=== PATIENT | female | born 1930 ===

== ENCOUNTER 2016-12-22 15:01 | Inpatient (IN) | payer MEDICARE ==
[2016-12-22] MEDS ORDERED: Iohexol 240 (50 ml) PO STA (15:43)
--- NOTE | 2016-12-22 15:54 | ED PDOC ---
HPI: Abdomen Time Seen by Provider: 12/22/16 15:30 Chief Complaint (Nursing): GI Problem Chief Complaint (Provider): decreased appetite History Per: Patient, Family (86 y/o female h/o mild dementia h/o Diabetes , here with daughter by ambulance for evaluation of decreased appetite. Patient denies any chest pain/abdominal pain/fever/chills. Daughter notes patient has not taken her medications x 1 year (notes medication in cabinet). Notes patient has not been eating. Patient lives alone.) Past Medical History Reviewed: Historical Data, Nursing Documentation, Vital Signs Vital Signs: Last Vital Signs Temp 99.4 F 12/22/16 15:04 Pulse 88 12/22/16 15:04 Resp 18 12/22/16 15:04 BP 139/64 12/22/16 15:04 Pulse Ox 98 12/22/16 20:16 - Medical History PMH: HTN - Allergies Allergies/Adverse Reactions: Allergies Allergy/AdvReac Type Severity Reaction Status Date / Time No Known Allergies Allergy Verified 07/01/14 17:29 Review of Systems ROS Statement: Except As Marked, All Systems Reviewed And Found Negative Physical Exam - Reviewed Nursing Documentation Reviewed: Yes Vital Signs Reviewed: Yes - Physical Exam Appears: Positive for: Well, Non-toxic, No Acute Distress Head Exam: Positive for: ATRAUMATIC, NORMAL INSPECTION, NORMOCEPHALIC Skin: Positive for: Warm, Jaundice. Negative for: Normal Color Eye Exam: Positive for: Normal appearance, EOMI, PERRL, Scleral icterus ENT: Positive for: Normal ENT Inspection Neck: Positive for: Normal, Painless ROM Cardiovascular/Chest: Positive for: Regular Rate, Rhythm Respiratory: Positive for: CNT, Normal Breath Sounds Gastrointestinal/Abdominal: Positive for: Normal Exam, Bowel Sounds, Soft Back: Positive for: Normal Inspection Extremity: Positive for: Normal ROM Neurologic/Psych: Positive for: Alert (Patient alert and oriented to self/place/ event), Oriented - Laboratory Results Result Diagrams: 12/22/16 15:59 12/22/16 15:59 - ECG O2 Sat by Pulse Oximetry: 98 - Progress ED Course And Treament: d/w Dr Mcdonnell. Medical Decision Making Medical Decision Making: CT ABDOMEN AND PELVIS FINDINGS: LOWER THORAX: Unremarkable. LIVER: Profile bile duct dilatation. Intrahepatic bile ducts are dilated, the common duct is dilated in its entirety to a point where it abruptly tapers in the vicinity of the pancreatic head. Pancreatic head is enlarged and there is diffuse and infiltrative process affecting the pancreatic and. Portions of the body and tail are atrophic the pancreatic duct is dilated. All findings are presumptive evidence for primary neoplasm of the pancreas. The irregular an infiltrative process involving the pancreatic head measures approximately 3.4 x 3.5 cm. Differentiating the pancreatic mass from local infiltration and adenopathy is difficult because of the absence of intravenous contrast and paucity of fat. GALLBLADDER AND BILE DUCTS: Status post cholecystectomy. No abnormality is seen in the gallbladder fossa. PANCREAS: Intrahepatic bile duct and common bile duct dilatation appears to be related to a diffuse and infiltrative mass in the pancreatic head inseparable from adjacent retroperitoneal and right upper quadrant anatomic structures. SPLEEN: Unremarkable. ADRENALS: Unremarkable. No mass. KIDNEYS AND URETERS: Unremarkable. No hydronephrosis. No solid mass. VASCULATURE: Unremarkable. No aortic aneurysm. BOWEL: Unremarkable. No obstruction. NoThe stomach is decompressed and, incompletely distended accentuating thickness of gastric mucosa. A component of gastritis should be considered in the appropriate clinical setting. The gross mural thickening. Constipation without fecal impaction or obstruction. APPENDIX: Normal appendix. PERITONEUM: Trace pelvic ascites. LYMPH NODES: Lymphadenopathy is suspected in the peripancreatic, retroperitoneal region. As stated previously the absence of intravenous contrast and sufficient oral contrast precludes more optimal assessment BLADDER: Markedly distended urinary bladder without focal abnormality REPRODUCTIVE: Unremarkable. BONES: Sclerotic lesion affecting L3 vertebral body suspicious for metastatic disease. OTHER FINDINGS: None. IMPRESSION: Enlargement of pancreatic head, dilatation of distal pancreatic duct, marked dilatation of common and intrahepatic bile ducts. Findings in all likelihood represent primary neoplasm of the pancreas. Differentiating the primary neoplastic process from adjacent infiltration and lymphadenopathy is difficult due to absence of abdominal retroperitoneal fat, lack of intravenous contrast and suboptimal opacification of duodenum and proximal small bowel. Sclerotic lesion L3 vertebral body. Suspicious for metastatic disease. No additional suspicious findings visualized osseous structures. Disposition - Clinical Impression Clinical Impression: Pancreatic mass, Renal insufficiency - Patient ED Disposition Is Patient to be Admitted: Yes - Disposition Disposition Time: 19:59 Condition: FAIR - Pt Status Changed To: Hospital Disposition Of: Inpatient - Admit Certification Admit to Inpatient:: After my assessment, the patient will require hospitalization for at least two midnights. This is because of the severity of symptoms shown, intensity of services needed, and/or the medical risk in this patient being treated as an outpatient.
[2016-12-22] MEDS ORDERED: Sodium Chloride 0.9% 500 ML IV STA (15:55)
[2016-12-22] MEDS ORDERED: Iohexol 240 (50 ml) ONE (16:04)
[2016-12-22 16:09] LABS: BASO # 0.2 K/uL (0.0-0.2); BASO % 3.2 % (0.0-2.0); EOS % 0.4 % (0.0-4.0); LYMPH # 5.7 K/uL (1.0-4.3); LYMPH % 73.4 % (20.0-40.0); MEAN CELL VOLUME 86.1 fl (81.0-99.0); MEAN CORPUSCULAR HEMOGLOBIN 27.4 pg (27.0-31.0); MEAN CORPUSCULAR HGB CONC 31.8 g/dL (33.0-37.0); MEAN PLATELET VOLUME 10.9 fl (7.2-11.7); MONO # 0.3 K/uL (0.0-0.8); MONO % 3.4 % (0.0-10.0); NEUT # 1.5 K/uL (1.8-7.0); NEUT % 19.6 % (50.0-75.0); PLATELET COUNT 196 K/uL (130-400); RED CELL DISTRIBUTION WIDTH 17.6 % (11.5-14.5); WHITE BLOOD COUNT 7.8 K/uL (4.8-10.8)
[2016-12-22 16:22] LABS: ALB/GLOB RATIO 0.9 (1.0-2.1); ALBUMIN 3.8 g/dL (3.5-5.0); CALCIUM 10.1 mg/dL (8.4-10.2)
[2016-12-22 16:38] LABS: INR 1.3 (0.9-1.2); PARTIAL THROMBOPLASTIN TIME 31.9 Seconds (25.6-37.1); PROTHROMBIN TIME 14.4 Seconds (9.8-13.1)
[2016-12-22] MEDS ORDERED: Iohexol 240 (50 ml) PO ONE (17:14)
[2016-12-22 18:48] LABS: EOSINOPHIL 1 % (0-7); LYMPHOCYTE 31 % (20-50); MONOCYTE 5 % (0-10); NEUTROPHIL 61 % (42-75); PLATELET ESTIMATE NORMAL (NORMAL); REACTIVE LYMPHOCYTES 2 % (0-0); TOTAL CELLS COUNTED 100
[2016-12-22 18:49] LABS: ANISOCYTOSIS SLIGHT; HYPOCHROMIC SLIGHT; LARGE PLATELETS PRESENT; OVALOCYTES SLIGHT; TEARDROP CELLS SLIGHT
--- NOTE | 2016-12-22 19:00 | CT ---
PROCEDURE: CT Abdomen and Pelvis with contrast HISTORY: Painless jaundice, pancreatic cancer suspected COMPARISON: None. TECHNIQUE: Contrast dose: Oral contrast only. Radiation dose: Total exam DLP = 173.25 mGy-cm. This CT exam was performed using one or more of the following dose reduction techniques: Automated exposure control, adjustment of the mA and/or kV according to patient size, and/or use of iterative reconstruction technique. FINDINGS: LOWER THORAX: Unremarkable. LIVER: Profile bile duct dilatation. Intrahepatic bile ducts are dilated, the common duct is dilated in its entirety to a point where it abruptly tapers in the vicinity of the pancreatic head. Pancreatic head is enlarged and there is diffuse and infiltrative process affecting the pancreatic and. Portions of the body and tail are atrophic the pancreatic duct is dilated. All findings are presumptive evidence for primary neoplasm of the pancreas. The irregular an infiltrative process involving the pancreatic head measures approximately 3.4 x 3.5 cm. Differentiating the pancreatic mass from local infiltration and adenopathy is difficult because of the absence of intravenous contrast and paucity of fat. GALLBLADDER AND BILE DUCTS: Status post cholecystectomy. No abnormality is seen in the gallbladder fossa. PANCREAS: Intrahepatic bile duct and common bile duct dilatation appears to be related to a diffuse and infiltrative mass in the pancreatic head inseparable from adjacent retroperitoneal and right upper quadrant anatomic structures. SPLEEN: Unremarkable. ADRENALS: Unremarkable. No mass. KIDNEYS AND URETERS: Unremarkable. No hydronephrosis. No solid mass. VASCULATURE: Unremarkable. No aortic aneurysm. BOWEL: Unremarkable. No obstruction. NoThe stomach is decompressed and, incompletely distended accentuating thickness of gastric mucosa. A component of gastritis should be considered in the appropriate clinical setting. The gross mural thickening. Constipation without fecal impaction or obstruction. APPENDIX: Normal appendix. PERITONEUM: Trace pelvic ascites. LYMPH NODES: Lymphadenopathy is suspected in the peripancreatic, retroperitoneal region. As stated previously the absence of intravenous contrast and sufficient oral contrast precludes more optimal assessment BLADDER: Markedly distended urinary bladder without focal abnormality REPRODUCTIVE: Unremarkable. BONES: Sclerotic lesion affecting L3 vertebral body suspicious for metastatic disease. OTHER FINDINGS: None. IMPRESSION: Enlargement of pancreatic head, dilatation of distal pancreatic duct, marked dilatation of common and intrahepatic bile ducts. Findings in all likelihood represent primary neoplasm of the pancreas. Differentiating the primary neoplastic process from adjacent infiltration and lymphadenopathy is difficult due to absence of abdominal retroperitoneal fat, lack of intravenous contrast and suboptimal opacification of duodenum and proximal small bowel. Sclerotic lesion L3 vertebral body. Suspicious for metastatic disease. No additional suspicious findings visualized osseous structures.
[2016-12-22] MEDS: Dextrose 5%/0.45% NS 1,000 ML IV SCH (22:25)
[2016-12-23] MEDS ORDERED: Enoxaparin 30 mg Syringe SC SCH (09:00)
[2016-12-23] MEDS: Dextrose 5%/0.45% NS 1,000 ML IV SCH ×2 (09:09→17:43)
--- NOTE | 2016-12-23 09:09 | CP.PCM.PN ---
Subjective - Date & Time of Evaluation Date of Evaluation: 12/23/16 Time of Evaluation: 09:01 - Subjective Subjective: Virgil is a 86 yrs old femae who was broughtr to the Er with c/o lack of appetite and weight loss. She has a h/o diabetes mellitus, so to keep her sugar down she tries to eat as little as possible. No abdominal pain,, nausea, vomiting or diarrhea. . In the Er a ct scan of the abdomen showed a mass in the headof the pancreas with dilatation of the CBD and intrahepatic vessels. The radiological opinion is that this a pancreatic cancer Pt also has some lymphocytosis. She has no other complaints, She wants to go home because she does not like being in a hospital. A GI consult has been called for a EUS biopsy of the mass. Her bilirubin is 26 and LFT markedly elevated. Objective - Vital Signs/Intake and Output Vital Signs (last 24 hours): Temp Pulse Resp BP Pulse Ox 97.3 F L 57 L 18 157/77 H 99 12/23/16 07:26 12/23/16 07:26 12/23/16 07:26 12/23/16 07:26 12/23/16 07:26 - Medications Medications: Current Medications Bisoprolol Fumarate (Zebeta) 5 mg PO DAILY [facility] Last Admin: 12/23/16 03:28 Dose: 5 mg Enoxaparin Sodium (Lovenox) 30 mg SC DAILY [facility] PRN Reason: Protocol Dextrose/Sodium Chloride (Dextrose 5%/0.45% Ns 1000 Ml) 1,000 mls @ 100 mls/hr IV .Q10H [facility] Stop: 12/23/16 20:15 Last Admin: 12/22/16 22:25 Dose: 100 mls/hr - Labs Labs: PT 14.4 Seconds (9.8-13.1) H 12/22/16 15:59 INR 1.3 (0.9-1.2) H 12/22/16 15:59 APTT 31.9 Seconds (25.6-37.1) 12/22/16 15:59 - Additional Findings Additional findings: physical exam; Alert, well oriented, in no acute distress neck; Supple, adenopathy Chest; clear, no rales or rhonchi Heart; RSR, no murmur Abd; Soft, no mass, no h/s megaly Assessment and Plan - Assessment and Plan (Free Text) Assessment: Impression; Pancreatic mass, most probably malignant. Lymphocytosis. Plan: Plan; Pt needs a pancreatic biopsy. Will await the result.
--- NOTE | 2016-12-23 11:33 | US ---
HISTORY: evaluate for biliary obstruction COMPARISON: None. TECHNIQUE: Sonographic evaluation of the right upper quadrant of the abdomen. FINDINGS: LIVER: Measures 15.3 cm in length. Heterogeneously increased echogenicity of the liver parenchyma. No mass. Extensive intra and extrahepatic biliary dilatation. The proximal common bile duct measures up to 15 mm in diameter. GALLBLADDER: Status post cholecystectomy COMMON BILE DUCT: Measures 15 mm. No calculi within the biliary tree. There is probable sludge seen within the common bile duct. Cannot rule out neoplasm. Consider further evaluation with MRCP.. PANCREAS: Unremarkable as visualized. No mass. No ductal dilatation. RIGHT KIDNEY: Measures 9.4 cm in length. Normal echogenicity. No calculus, mass, or hydronephrosis. AORTA: No aneurysmal dilatation. IVC: Unremarkable. OTHER FINDINGS: None . IMPRESSION: Extensive intra and extrahepatic biliary ductal dilatation with probable sludge seen in common bile duct. Cannot rule out neoplasm. Consider evaluation with MRCP. Common bile duct measures up to 15 mm. Status post cholecystectomy. Probable fatty infiltration of the liver. Preliminary interpretation of this examination was reported by [facility] at 9:20 p.m. on 12/22/2016. There is concurrence of this report with the preliminary interpretation.
--- NOTE | 2016-12-23 13:09 | CP.PCM.CON ---
History of Present Illness - History of Present Illness History of Present Illness: GI consult requested by Dr Mcdonnell- This is a 86 yr old F with history of dementia / lives alone with her giorgio. She was brought to the ER by her daughter for loss of appetite and weight loss. In ER found to have hyperbilirubinemia and abnormal imaging for pancreatic head mass. Patient seen at bedside this am. Denies nausea, vomiting, constipation, diarrhea, rash. Denies smoking history Review of Systems - Review of Systems Review of Systems: 12 point ROS unremarkable except that documented in HPI Past Patient History - Past Medical History & Family History Past Medical History?: Yes - Past Social History Smoking Status: Never Smoked - CARDIAC Hx Cardiac Disorders: Yes Hx Hypertension: Yes - PULMONARY Hx Respiratory Disorders: No - NEUROLOGICAL Hx Neurological Disorder: Yes Hx Dementia: Yes (early? As per family) - HEENT Hx HEENT Problems: No - RENAL Hx Chronic Kidney Disease: No - ENDOCRINE/METABOLIC Hx Endocrine Disorders: No Hx Diabetes Mellitus Type 2: Yes - HEMATOLOGICAL/ONCOLOGICAL Hx AIDS: No Hx Human Immunodeficiency Virus (HIV): No - INTEGUMENTARY Hx Dermatological Problems: No - MUSCULOSKELETAL/RHEUMATOLOGICAL Hx Musculoskeletal Disorders: No Hx Falls: No - GASTROINTESTINAL Hx Gastrointestinal Disorders: No - GENITOURINARY/GYNECOLOGICAL Hx Genitourinary Disorders: No - PSYCHIATRIC Hx Psychophysiologic Disorder: No Hx Substance Use: No - SURGICAL HISTORY Hx Surgeries: No - ANESTHESIA Hx Anesthesia: Yes (Local) Hx Anesthesia Reactions: No Hx Malignant Hyperthermia: No Has any member of the family had a problem w/ anesthesia?: No Meds Allergies/Adverse Reactions: Allergies Allergy/AdvReac Type Severity Reaction Status Date / Time No Known Allergies Allergy Verified 07/01/14 17:29 - Medications Medications: Current Medications Amlodipine Besylate (Norvasc) 10 mg PO DAILY [facility] Last Admin: 12/23/16 12:51 Dose: 10 mg Bisoprolol Fumarate (Zebeta) 5 mg PO DAILY [facility] Last Admin: 12/23/16 03:28 Dose: 5 mg Enoxaparin Sodium (Lovenox) 30 mg SC DAILY [facility] PRN Reason: Protocol Last Admin: 12/23/16 09:10 Dose: 30 mg Hydrochlorothiazide (Microzide) 12.5 mg PO DAILY [facility] Dextrose/Sodium Chloride (Dextrose 5%/0.45% Ns 1000 Ml) 1,000 mls @ 100 mls/hr IV .Q10H [facility] Stop: 12/23/16 20:15 Last Admin: 12/23/16 09:09 Dose: 100 mls/hr Physical Exam - Constitutional Appears: Non-toxic, No Acute Distress, Cachectic - Head Exam Head Exam: ATRAUMATIC, NORMAL INSPECTION, NORMOCEPHALIC - Eye Exam Eye Exam: EOMI, Normal appearance, PERRL, Scleral icterus - ENT Exam ENT Exam: Mucous Membranes Moist, Normal Oropharynx - Respiratory Exam Respiratory Exam: Clear to Auscultation Bilateral, NORMAL BREATHING PATTERN - Cardiovascular Exam Cardiovascular Exam: REGULAR RHYTHM, RRR, +S1, +S2 - GI/Abdominal Exam GI & Abdominal Exam: Normal Bowel Sounds, Soft. absent: Tenderness Additional comments: No distension, guarding or rigidity - Extremities Exam Extremities exam: Positive for: full ROM, normal inspection - Neurological Exam Neurological exam: Alert - Psychiatric Exam Psychiatric exam: Normal Affect, Normal Mood - Skin Skin Exam: Dry, Intact Results - Vital Signs Recent Vital Signs: Last Vital Signs Temp 97.3 F L 12/23/16 07:26 Pulse 60 12/23/16 12:51 Resp 18 12/23/16 07:26 BP 157/77 H 12/23/16 12:51 Pulse Ox 99 12/23/16 07:26 - Labs Result Diagrams: 12/22/16 15:59 12/22/16 15:59 Labs: Laboratory Results - last 24 hr 12/23/16 10:53 POC Glucose (mg/dL) 187 H - Imaging and Cardiology CT scan - abdomen Status: Image reviewed by me Assessment & Plan - Assessment and Plan (Free Text) Assessment: 86 yr old F admitted with weight loss, new onset jaundice and abnormal imaging for pancreatic head mass. Scheduled for EUS with FNA, ERCP at [facility] tomorrow afternoon with GI plant quality manager Dr Fowler Plan: - Trend daily LFT and coag profile - IVF - NPO past midnight - Diet as tolerated - EUS/ ERCP at [facility] tomorrow afternoon for biopsy and possible stent - Likely metastatic lesion due to bony changes - Discussed with team and Dr Mcdonnell - GI/DVT prophylaxis
--- NOTE | 2016-12-23 13:58 | RAD ---
HISTORY: Admission COMPARISON: 07/01/2014 FINDINGS: LUNGS: No active pulmonary disease. PLEURA: No significant pleural effusion identified, no pneumothorax apparent. CARDIOVASCULAR: Normal. OSSEOUS STRUCTURES: No significant abnormalities. VISUALIZED UPPER ABDOMEN: Normal. OTHER FINDINGS: None. IMPRESSION: No active disease.
[2016-12-23 16:54] LABS: SQUAMOUS EPITHIAL < 1 /hpf (0-5); URINE BACTERIA OCC (<OCC); URINE BILIRUBIN MODERATE (NEGATIVE); URINE BLOOD NEGATIVE (NEGATIVE); URINE CLARITY SLIGHTY-CLOUDY (Clear); URINE COLOR AMBER (YELLOW); URINE GLUCOSE (UA) NEG (Normal); URINE LEUKOCYTE ESTERASE SMALL Leu/uL (Negative); URINE NITRATE NEGATIVE (NEGATIVE); URINE PROTEIN NEGATIVE (NEGATIVE)
--- NOTE | 2016-12-23 16:55 | CARD ---
APPROVED REPORT EXAM: Two-dimensional and M-mode echocardiogram with Doppler and color Doppler. Other Information Quality : [employer] : INDICATION Cardiac Disease: CAD 2D DIMENSIONS IVSd1.09 (0.7-1.1cm)LVDd4.66 (3.9-5.9cm) LVOT Diameter2.21 (1.8-2.4cm)PWd0.83 (0.7-1.1cm) IVSs1.02 (0.8-1.2cm)LVDs4.04 (2.5-4.0cm) FS (%) 13.3 %PWs0.82 (0.8-1.2cm) M-Mode DIMENSIONS IVSd0.62 (0.7-1.1cm)LVDd7.06 (4.0-5.6cm) PWd0.74 (0.7-1.1cm)IVSs1.03 cm FS (%) 19 %LVDs5.71 (2.0-3.8cm) PWs0.94 cm Mitral Valve MV E Zmeataqe60.2cm/sMV DECEL [id number] A Rhoshhtq277.1cm/s MV ZCA52bhC/A ratio0.5MVA (PHT)3.85cm2 TDI Lateral E' Peak V3.99cm/sMedial E' Peak V3.59cm/sE/Lateral E'14.1 E/Medial E'15.7 Tricuspid Valve TR Peak [id number]/sRAP [id number] Peak Gr.14mmHg [id number] LEFT VENTRICLE The left ventricle is normal size. There is normal left ventricular wall thickness. Left ventricle is severely impaired. The Ejection Fraction is 15-20%. Sever Septal and Apical hypokinesis Transmitral Doppler flow pattern is Grade I-abnormal relaxation pattern. Spontaneous contrast is noted in the LV and LA consistent with the low flow state. RIGHT VENTRICLE The right ventricle is normal size. There is normal right ventricular wall thickness. The right ventricular systolic function is normal. ATRIA The left atrium is borderline dilated. The right atrium size is normal. AORTIC VALVE The aortic valve is mildly thickened. No aortic regurgitation is present. There is no aortic valvular stenosis. MITRAL VALVE The mitral valve is mildly thickened. There is no mitral valve stenosis. Mitral regurgitation is moderate. TRICUSPID VALVE The tricuspid valve is normal in structure There is trace tricuspid regurgitation. PULMONIC VALVE The pulmonary valve is normal in structure and function. There is no pulmonic valvular regurgitation. GREAT VESSELS The aortic root is normal in size. The IVC is normal in size and collapses >50% with inspiration. PERICARDIAL EFFUSION The pericardium appears normal. <Conclusion> The left ventricle is normal size. There is normal left ventricular wall thickness. Left ventricle is severely impaired. The Ejection Fraction is 15-20%. Sever Septal and Apical hypokinesis Transmitral Doppler flow pattern is Grade I-abnormal relaxation pattern. Spontaneous contrast is noted in the LV and LA consistent with the low flow state. Mitral regurgitation is moderate.
--- NOTE | 2016-12-23 20:36 | CP.PCM.CON ---
History of Present Illness - History of Present Illness History of Present Illness: THE PATIENT IS AN 86 YEAR OLD FEMALE WHO WAS BROUGHT TO THE ER BY HER DAUGHTER FOR POOR APPETITE. SHE HAS LOST MUCH WEIGHT RECENTLY AND HAS BECOME JAUNDICED. A CT SCAN SHOWED AN PANCREATIC MASS. SHE IS SCHEDULED TO HAVE AN EUS/ERCP AND POSSIBLE STENT PLACEMENT AT [facility] AND I WAS ASKED TO SEE HER ON CARDIAC CLEARANCE. SHE ALSO HAS A HISTORY OF HYPERTENSION, CAD AND DEMENTIA. SHE DENIES ANY KNOWN CARDIAC DISEASE TO ME INCLUDING CHEST PAIN OR PRIOR MS. BUT, THE ATTENDING PHYSICIAN TOLD ME SHE HAS CAD. Past Patient History - Past Medical History & Family History Past Medical History?: Yes - Past Social History Smoking Status: Never Smoked - CARDIAC Hx Cardiac Disorders: Yes Hx Hypertension: Yes - PULMONARY Hx Respiratory Disorders: No - NEUROLOGICAL Hx Neurological Disorder: Yes Hx Dementia: Yes (early? As per family) - HEENT Hx HEENT Problems: No - RENAL Hx Chronic Kidney Disease: No - ENDOCRINE/METABOLIC Hx Endocrine Disorders: No Hx Diabetes Mellitus Type 2: Yes - HEMATOLOGICAL/ONCOLOGICAL Hx AIDS: No Hx Human Immunodeficiency Virus (HIV): No - INTEGUMENTARY Hx Dermatological Problems: No - MUSCULOSKELETAL/RHEUMATOLOGICAL Hx Musculoskeletal Disorders: No Hx Falls: No - GASTROINTESTINAL Hx Gastrointestinal Disorders: No - GENITOURINARY/GYNECOLOGICAL Hx Genitourinary Disorders: No - PSYCHIATRIC Hx Psychophysiologic Disorder: No Hx Substance Use: No - SURGICAL HISTORY Hx Surgeries: No - ANESTHESIA Hx Anesthesia: Yes (Local) Hx Anesthesia Reactions: No Hx Malignant Hyperthermia: No Has any member of the family had a problem w/ anesthesia?: No Meds Allergies/Adverse Reactions: Allergies Allergy/AdvReac Type Severity Reaction Status Date / Time No Known Allergies Allergy Verified 07/01/14 17:29 - Medications Medications: Current Medications Amlodipine Besylate (Norvasc) 10 mg PO DAILY [facility] Last Admin: 12/23/16 12:51 Dose: 10 mg Bisoprolol Fumarate (Zebeta) 5 mg PO DAILY [facility] Last Admin: 12/23/16 03:28 Dose: 5 mg Enoxaparin Sodium (Lovenox) 30 mg SC DAILY [facility] PRN Reason: Protocol Last Admin: 12/23/16 09:10 Dose: 30 mg Hydrochlorothiazide (Microzide) 12.5 mg PO DAILY [facility] Physical Exam - Respiratory Exam Respiratory Exam: Clear to Auscultation Bilateral - Cardiovascular Exam Cardiovascular Exam: REGULAR RHYTHM, +S1, +S2 - Extremities Exam Extremities exam: Positive for: normal inspection - Additional Findings Additional findings: EKG NSR ECHO WITH DECREASED LV SYSTOLIC FUNCTION LFT INCLUDING BILIRUBIN ARE VERY ELEVATED CT WITH PANCREATIC LESION, PANCREATIC DUCT AND BILIARY DUCTS AND L3 LESION Results - Vital Signs Recent Vital Signs: Last Vital Signs Temp 97.2 F L 12/23/16 16:00 Pulse 54 L 12/23/16 16:00 Resp 20 12/23/16 16:00 BP 133/71 12/23/16 16:00 Pulse Ox 99 12/23/16 16:00 - Labs Result Diagrams: 12/22/16 15:59 12/22/16 15:59 Labs: Laboratory Results - last 24 hr 12/23/16 12/23/16 12/23/16 10:53 11:08 15:55 POC Glucose (mg/dL) 187 H 197 H Hemoglobin A1c 5.5 Urine Color Urine Clarity Urine pH Ur Specific [place] Urine Protein Urine Glucose (UA) Urine Ketones Urine Blood Urine Nitrate Urine Bilirubin Urine Urobilinogen Ur Leukocyte Esterase Urine RBC (Auto) Urine Microscopic WBC Ur Squamous Epith Cells Urine Bacteria 12/23/16 16:30 POC Glucose (mg/dL) Hemoglobin A1c Urine Color [place] Urine Clarity Slighty-cloudy Urine pH 6.0 Ur Specific [place] 1.013 Urine Protein Negative Urine Glucose (UA) Neg Urine Ketones Negative Urine Blood Negative Urine Nitrate Negative Urine Bilirubin Moderate Urine Urobilinogen 2.0 H Ur Leukocyte Esterase Small Urine RBC (Auto) 6 H Urine Microscopic WBC 8 H Ur Squamous Epith Cells < 1 Urine Bacteria Occ H Assessment & Plan - Assessment and Plan (Free Text) Assessment: HYPERTENSION CAD BY HISTORY PANCREATIC LESION WITH POSSIBLE METASTASIS TO L3 Plan: THE PATIENT IS CLEARED FOR THE EUS/ERCP AND POSSIBLE BX AND STENT INSERTION THE FAMILY WAS SPOKEN TO AND THEY AGREE THAT THE PATIENT MUST PROCEED WITH THIS PROCEDURE CATHLEEN
--- NOTE | 2016-12-24 00:04 | CARD ---
APPROVED REPORT EKG Measurement Heart [id number] <Conclusion> Sinus bradycardia Septal infarct, age undetermined T wave abnormality, consider lateral ischemia Abnormal ECG
--- NOTE | 2016-12-24 06:41 | HP ---
HISTORY OF PRESENT ILLNESS: This is an 86-year-old female with history of multiple medical problems, not compliant to her medical followup or medications. The patient was not seen in my office for long period. The patient was brought to emergency room by her daughter because of stopping eating and remarkable loss of weight and generalized weakness. The patient was evaluated in emergency room where few are found to have deep jaundice as well as CAT scan findings of pancreatic mass. The patient was admitted for further management after starting IV fluid and GI consultation was called. The patient is developing dementia. PAST MEDICAL HISTORY: Coronary artery disease, hypertension, type II diabetes mellitus. FAMILY HISTORY: Noncontributory. SOCIAL HISTORY: Ex-smoker, no ETOH or substance abuse. HOME MEDICATIONS: The patient is on amlodipine and hydrochlorothiazide to which the patient is not compliant. REVIEW OF SYSTEMS: Not reliable. PHYSICAL EXAMINATION GENERAL: The patient is deeply jaundiced, but she is not on any cardiopulmonary distress. VITAL SIGNS: Blood pressure 157/77, temperature 97.3, respiratory rate 18 and pulse 57. HEENT: Pupils are equal and reactive to light. Normal-appearing mucosa of the conjunctiva. Sclerae clear. NECK: Supple. No JVD. No carotid bruit. No lymph node. No thyromegaly. CHEST AND LUNGS: Bilateral with symmetrical expansion. Good air exchange. No rales. No rhonchi. CARDIORESPIRATORY: PMI not localized. S1 and S2. No additional sounds. ABDOMEN: Normoactive bowel sounds. No tenderness. No organomegaly. No masses. EXTREMITIES: No cyanosis or clubbing. No edema. CENTRAL NERVOUS SYSTEM: The patient is alert, awake and oriented x1. The patient moves all extremities equally. LABORATORY DATA: Blood work done in emergency room showed the patient has elevated liver enzymes, AST is 275, ALT is 285. Alkaline phosphatase 1105 and total bilirubin of 26.5, BUN 66 and creatinine 1.6. ASSESSMENT: Obstructive jaundice, pancreatic mass, acute kidney injury with BUN 66 and creatinine 1.6. History of hypertension, history of type 2 diabetes mellitus. PLAN: We will continue IV fluids that was started in the emergency room and we will give the patient DVT prophylaxis, Lovenox 30 mg daily and continue Norvasc and Zebeta for hypertension and follow GI recommendations. Sameh MD Sathya [facility] # [id number]
[2016-12-24 07:35] LABS: EOS # 0.1 K/uL (0.0-0.7); EOS % 1.2 % (0.0-4.0); HEMOGLOBIN 13.5 g/dL (12.0-16.0); LYMPH # 1.4 K/uL (1.0-4.3); LYMPH % 24.7 % (20.0-40.0); MEAN CELL VOLUME 85.4 fl (81.0-99.0); MEAN CORPUSCULAR HEMOGLOBIN 27.3 pg (27.0-31.0); MEAN CORPUSCULAR HGB CONC 31.9 g/dL (33.0-37.0); MEAN PLATELET VOLUME 11.1 fl (7.2-11.7); MONO # 0.4 K/uL (0.0-0.8); MONO % 7.3 % (0.0-10.0); NEUT # 3.7 K/uL (1.8-7.0); NEUT % 66.8 % (50.0-75.0); NRBC % 0.1 % (0.0-0.0); RBC 4.96 Mil/uL (3.80-5.20); RED CELL DISTRIBUTION WIDTH 17.7 % (11.5-14.5); WHITE BLOOD COUNT 5.6 K/uL (4.8-10.8)
[2016-12-24 08:01] LABS: ALBUMIN 2.9 g/dL (3.5-5.0); ALT/SGPT 240 U/L (9-52); AST/SGOT 193 U/L (14-36); BLOOD UREA NITROGEN 35 mg/dl (7-17); CALCIUM 8.8 mg/dL (8.4-10.2); GFR AFRICAN-AMERICAN > 60; GFR NON-AFRICAN AMERICAN 53
[2016-12-24 08:02] LABS: ALB/GLOB RATIO 0.9 (1.0-2.1)
[2016-12-24 08:35] LABS: INR 1.5 (0.9-1.2); PARTIAL THROMBOPLASTIN TIME 36.1 Seconds (25.6-37.1); PROTHROMBIN TIME 16.5 Seconds (9.8-13.1)
--- NOTE | 2016-12-24 09:16 | CP.PCM.PN ---
Subjective - Date & Time of Evaluation Date of Evaluation: 12/24/16 Time of Evaluation: 09:08 - Subjective Subjective: Pt has no complaints today. She is to go to [facility] for EUS biopsy of the pancreas. Further decision depends on the result of the biopsy. Objective - Vital Signs/Intake and Output Vital Signs (last 24 hours): Temp Pulse Resp BP Pulse Ox 97.6 F 60 20 135/67 99 12/24/16 08:11 12/24/16 08:11 12/24/16 08:11 12/24/16 08:11 12/24/16 08:11 - Medications Medications: Current Medications Amlodipine Besylate (Norvasc) 10 mg PO DAILY [facility] Last Admin: 12/24/16 08:50 Dose: Not Given Bisoprolol Fumarate (Zebeta) 5 mg PO DAILY [facility] Last Admin: 12/24/16 08:50 Dose: 5 mg Enoxaparin Sodium (Lovenox) 30 mg SC DAILY [facility] PRN Reason: Protocol Last Admin: 12/23/16 09:10 Dose: 30 mg Hydrochlorothiazide (Microzide) 12.5 mg PO DAILY [facility] Last Admin: 12/24/16 08:50 Dose: Not Given Dextrose/Sodium Chloride (Dextrose 5%-0.45% Ns 500 Ml) 1,000 mls @ 100 mls/hr IV .Q10H [facility] Stop: 12/24/16 21:02 Last Admin: 12/24/16 06:40 Dose: 100 mls/hr - Labs Labs: 12/24/16 05:50 12/24/16 05:50 PT 16.5 Seconds (9.8-13.1) H 12/24/16 05:50 INR 1.5 (0.9-1.2) H 12/24/16 05:50 APTT 36.1 Seconds (25.6-37.1) 12/24/16 05:50
--- NOTE | 2016-12-24 10:12 | CP.PCM.PN ---
Subjective - Date & Time of Evaluation Date of Evaluation: 12/24/16 Time of Evaluation: 09:00 - Subjective Subjective: NO COMPLAINTS Objective - Vital Signs/Intake and Output Vital Signs (last 24 hours): Temp Pulse Resp BP Pulse Ox 97.6 F 60 20 135/67 99 12/24/16 08:11 12/24/16 08:11 12/24/16 08:11 12/24/16 08:11 12/24/16 08:11 - Medications Medications: Current Medications Amlodipine Besylate (Norvasc) 10 mg PO DAILY [facility] Last Admin: 12/24/16 08:50 Dose: Not Given Bisoprolol Fumarate (Zebeta) 5 mg PO DAILY [facility] Last Admin: 12/24/16 08:50 Dose: 5 mg Enoxaparin Sodium (Lovenox) 30 mg SC DAILY [facility] PRN Reason: Protocol Last Admin: 12/23/16 09:10 Dose: 30 mg Hydrochlorothiazide (Microzide) 12.5 mg PO DAILY [facility] Last Admin: 12/24/16 08:50 Dose: Not Given Dextrose/Sodium Chloride (Dextrose 5%-0.45% Ns 500 Ml) 1,000 mls @ 100 mls/hr IV .Q10H [facility] Stop: 12/24/16 21:02 Last Admin: 12/24/16 06:40 Dose: 100 mls/hr - Labs Labs: 12/24/16 05:50 12/24/16 05:50 PT 16.5 Seconds (9.8-13.1) H 12/24/16 05:50 INR 1.5 (0.9-1.2) H 12/24/16 05:50 APTT 36.1 Seconds (25.6-37.1) 12/24/16 05:50 - Cardiovascular Exam Cardiovascular Exam: REGULAR RHYTHM, +S1 - Extremities Exam Extremities Exam: Normal Inspection Assessment and Plan - Assessment and Plan (Free Text) Assessment: PANCREATIC MASS HYPERTENSION CAD HISTORY Plan: FOR EUS/ERCP TODAY AT [facility]
[2016-12-25 07:34] LABS: HEMOGLOBIN 12.3 g/dL (12.0-16.0); MEAN CORPUSCULAR HEMOGLOBIN 27.4 pg (27.0-31.0); MEAN CORPUSCULAR HGB CONC 31.5 g/dL (33.0-37.0); RBC 4.48 Mil/uL (3.80-5.20); RED CELL DISTRIBUTION WIDTH 17.7 % (11.5-14.5); WHITE BLOOD COUNT 9.6 K/uL (4.8-10.8)
[2016-12-25 07:41] LABS: ALB/GLOB RATIO 0.8 (1.0-2.1); ALBUMIN 2.6 g/dL (3.5-5.0); CALCIUM 8.5 mg/dL (8.4-10.2)
--- NOTE | 2016-12-25 08:42 | CP.PCM.PN ---
Subjective - Date & Time of Evaluation Date of Evaluation: 12/25/16 Time of Evaluation: 08:42 - Subjective Subjective: Pt was transported to [facility] where she underwent a EUS, had a stent placed in the CBD and a biopsy of the pancreas was also done. Awaiting the result of the biopsy. Objective - Vital Signs/Intake and Output Vital Signs (last 24 hours): Temp Pulse Resp BP Pulse Ox 97.6 F 59 L 20 116/60 100 12/25/16 08:14 12/25/16 08:14 12/25/16 08:14 12/25/16 08:14 12/25/16 08:14 - Medications Medications: Current Medications Amlodipine Besylate (Norvasc) 10 mg PO DAILY [facility] Last Admin: 12/24/16 08:50 Dose: Not Given Bisoprolol Fumarate (Zebeta) 5 mg PO DAILY [facility] Last Admin: 12/24/16 08:50 Dose: 5 mg Enoxaparin Sodium (Lovenox) 30 mg SC DAILY [facility] PRN Reason: Protocol Last Admin: 12/23/16 09:10 Dose: 30 mg Hydrochlorothiazide (Microzide) 12.5 mg PO DAILY [facility] Last Admin: 12/24/16 08:50 Dose: Not Given - Labs Labs: 12/25/16 05:50 12/25/16 05:50 PT 16.5 Seconds (9.8-13.1) H 12/24/16 05:50 INR 1.5 (0.9-1.2) H 12/24/16 05:50 APTT 36.1 Seconds (25.6-37.1) 12/24/16 05:50
--- NOTE | 2016-12-25 08:56 | CP.PCM.PN ---
Subjective - Date & Time of Evaluation Date of Evaluation: 12/25/16 Time of Evaluation: 08:15 - Subjective Subjective: NO NEW COMPLAINTS Objective - Vital Signs/Intake and Output Vital Signs (last 24 hours): Temp Pulse Resp BP Pulse Ox 97.6 F 59 L 20 116/60 100 12/25/16 08:14 12/25/16 08:14 12/25/16 08:14 12/25/16 08:14 12/25/16 08:14 - Medications Medications: Current Medications Amlodipine Besylate (Norvasc) 10 mg PO DAILY [facility] Last Admin: 12/24/16 08:50 Dose: Not Given Bisoprolol Fumarate (Zebeta) 5 mg PO DAILY [facility] Last Admin: 12/24/16 08:50 Dose: 5 mg Enoxaparin Sodium (Lovenox) 30 mg SC DAILY [facility] PRN Reason: Protocol Last Admin: 12/23/16 09:10 Dose: 30 mg Hydrochlorothiazide (Microzide) 12.5 mg PO DAILY [facility] Last Admin: 12/24/16 08:50 Dose: Not Given - Labs Labs: 12/25/16 05:50 12/25/16 05:50 PT 16.5 Seconds (9.8-13.1) H 12/24/16 05:50 INR 1.5 (0.9-1.2) H 12/24/16 05:50 APTT 36.1 Seconds (25.6-37.1) 12/24/16 05:50 - Respiratory Exam Respiratory Exam: Clear to Ausculation Bilateral - Cardiovascular Exam Cardiovascular Exam: REGULAR RHYTHM, +S1, +S2 - Extremities Exam Extremities Exam: Normal Inspection - Additional Findings Additional findings: PT HAD EUS/ERCP YESTERDAY AT [facility] WITH PANCREATIC BIOPSY AND STENT INSERTION MOST BP READINGS ARE LOW TO LOW NORMAL Assessment and Plan - Assessment and Plan (Free Text) Assessment: PROBABLE PANCREATIC CA HYPERTENSION CAD Plan: AMLODIPINE AND HCTZ STOPPED DUE TO LOW BP AND RECENT WEIGHT LOSS CONTINUE BETA RHIANNON IN LIGHT OF CAD PATIENT ON LIQUID DIET AWAITING BIOPSY RESULTS
--- NOTE | 2016-12-25 10:07 | PN ---
DATE: 12/24/2016 SUBJECTIVE: She has been n.p.o. for endoscopic ultrasound today at [facility]. PHYSICAL EXAMINATION: VITAL SIGNS: Blood pressure 135/67, temperature 97.6, respiratory rate 20, and pulse 60. HEENT: Icteric sclerae. NECK: Supple. NO JVD. No carotid bruits. No lymph node. No thyromegaly. LUNGS: Bilateral symmetrical expansion. Good air exchange. No rhonchi. CARDIOVASCULAR SYSTEM: PMI not localized. S1 and S2. No additional sounds. ABDOMEN: Normoactive bowel sounds. No tenderness. No organomegaly. No masses. EXTREMITIES: No cyanosis. No clubbing. No edema. FIRESETTER: Alert, awake, and oriented x1 and disoriented to time and to place. ASSESSMENT: 1. Obstructive jaundice , pancreatic head mass. 2. Hypertension. PLAN: The patient is for endoscopic ultrasound and possible biopsy and stent placement. I discussed the patient's condition with her daughter at the bedside. Guarded prognosis. Continue IV fluids, treating acute kidney injury and dehydration. Milan Mcdonnell MD [facility]
[2016-12-25] MEDS ORDERED: Potassium Chloride 20 mEq ER Tab PO ONE (10:38)
[2016-12-25] MEDS ORDERED: Dextrose 5%/0.45% NS 1,000 ML IV SCH (10:45)
--- NOTE | 2016-12-25 13:35 | CP.PCM.PN ---
Subjective - Date & Time of Evaluation Date of Evaluation: 12/25/16 Time of Evaluation: 08:00 - Subjective Subjective: Patient seen at bedside. Denies nausea, vomiting, abdominal pain. s/p ERCP with metal stent placement and EUS pancreatic head biopsy Objective - Vital Signs/Intake and Output Vital Signs (last 24 hours): Temp Pulse Resp BP Pulse Ox 97.6 F 66 20 102/62 99 12/25/16 08:14 12/25/16 08:58 12/25/16 08:14 12/25/16 08:58 12/25/16 08:58 - Medications Medications: Current Medications Bisoprolol Fumarate (Zebeta) 5 mg PO DAILY [facility] Last Admin: 12/25/16 10:04 Dose: 5 mg Enoxaparin Sodium (Lovenox) 30 mg SC DAILY [facility] PRN Reason: Protocol Last Admin: 12/23/16 09:10 Dose: 30 mg Dextrose/Sodium Chloride (Dextrose 5%/0.45% Ns 1000 Ml) 1,000 mls @ 50 mls/hr IV .Q20H [facility] Stop: 12/26/16 10:44 Piperacillin Sod/Tazobactam (Sod 2.25 gm/ Sodium Chloride) 100 mls @ 100 mls/ hr IVPB Q12 [facility] - Labs Labs: 12/25/16 05:50 12/25/16 05:50 PT 16.5 Seconds (9.8-13.1) H 12/24/16 05:50 INR 1.5 (0.9-1.2) H 12/24/16 05:50 APTT 36.1 Seconds (25.6-37.1) 12/24/16 05:50 - Constitutional Appears: Well, Non-toxic, No Acute Distress, Cachectic - Head Exam Head Exam: ATRAUMATIC, NORMAL INSPECTION, NORMOCEPHALIC - Eye Exam Eye Exam: Scleral icterus - Respiratory Exam Respiratory Exam: Clear to Ausculation Bilateral, NORMAL BREATHING PATTERN - Cardiovascular Exam Cardiovascular Exam: REGULAR RHYTHM, RRR, +S1, +S2 - GI/Abdominal Exam GI & Abdominal Exam: Soft, Normal Bowel Sounds - Neurological Exam Neurological Exam: Alert, Awake - Psychiatric Exam Psychiatric exam: Normal Affect, Normal Mood - Skin Skin Exam: Dry, Intact Assessment and Plan - Assessment and Plan (Free Text) Assessment: 86 yr old F admitted with weight loss, new onset jaundice and abnormal imaging for pancreatic head mass s/p EUS [facility] with ERCP sphincterotomy and 10 x 6 cm fully covered metal stent placement. Patient has bony mets on imaging and poor cardiac function. awaiting pathology. Rest of plan as per oncology. Tolerating regular diet Plan: - Total bilirubin down trending - No pain or s/s of pancreatitis - Pathology f/u and plan as per oncologist - Does not need anymore GI procedures - Regular diet - Thank you for letting us participate in the care of your patient
[2016-12-25 16:27] VITALS: TEMP 97.5
[2016-12-25 16:31] VITALS: BP 106/58; PULSE 60; RESP 20; O2SAT 99
--- NOTE | 2016-12-26 12:37 | DS ---
REASON FOR ADMISSION: This is an 86-year-old female with history of multiple medical problems who was admitted for severe obstructive jaundice. COURSE OF HOSPITALIZATION: Initially, the patient had a CAT scan of the abdomen that showed pancreatic head mass. The patient had a GI consultation done by Dr. Michael stewart and the patient was transferred to [facility] for endoscopic ultrasound, biopsy and stent placement. The patient was transferred back from [facility] to [facility] and she did not have any further symptoms. The patient was started on physical therapy and discharged to transitional care unit in a stable condition. FINAL DIAGNOSES: Obstructive jaundice, pancreatic head mass, history of hypertension. Please verify the demographics. [facility] MD Sathya cc:
== END 2016-12-25 17:58 | DRG 435 ==
LOC: H.ER 15:01 → H.ERHOLD 19:57 → H.MEDSURG1 21:27
PROVIDERS: ADMIT Internal Medicine; ATTEND Internal Medicine
DX: C25.0 Malignant neoplasm of head of pancreas (principal); K83.1 Obstruction of bile duct; N17.9 Acute kidney failure, unspecified; E11.9 Type 2 diabetes mellitus without complications; F03.90 Unspecified dementia, unspecified severity, without behavioral disturbance, psychotic disturbance, mood disturbance, and anxiety; I10 Essential (primary) hypertension; D72.820 Lymphocytosis (symptomatic); I25.10 Atherosclerotic heart disease of native coronary artery without angina pectoris; Z87.891 Personal history of nicotine dependence; Z91.19 Patient's noncompliance with other medical treatment and regimen

== ENCOUNTER 2016-12-25 13:07 | Inpatient (IN) | payer OTHER ==
[2016-12-25 18:05] VITALS: BMI 15.6
[2016-12-25 19:18] VITALS: RESP 20
[2016-12-25] MEDS: Dextrose 5%/0.45% NS 1,000 ML IV SCH (19:35)
[2016-12-25] MEDS ORDERED: Piperacillin/Tazobact 2.25 gm Inj IVPB SCH (21:00)
[2016-12-26] MEDS: Enoxaparin 30 mg Syringe SC SCH (09:02)
--- NOTE | 2016-12-26 11:18 | CP.PCM.CON ---
History of Present Illness - History of Present Illness History of Present Illness: THE PATIENT IS AN 86 YEAR OLD FEMALE WHO HAS A HISTORY OF CAD AND HYPERTENSION. SHE WAS RECENTLY ADMITTED TO [facility] AFTER THE DAUGHTER BROUGHT HER TO THE ER FOR LACK OF APPETITE AND WEIGHT LOSS. SHE WAS FOUND TO HAVE A PANCREATIC MASS AND DILATED BILIARY AND HEPATIC DUCTS ON CT SCAN AND SHE ALSO HAD VERY ELEVATED LFT. SHE UNDERWENT AN EUS/ERCP WITH STENT INSERTION AND PANCREATIC BX ON . SHE WAS DISCHARGED TO TCU FOR SUBACUTE CARE. CARDIOLOGY WAS NOW CALLED TO FOLLOW HER. SHE DENIES CHEST PAIN, ABDOMINAL PAIN OR SOB. Past Patient History - Past Medical History & Family History Past Medical History?: Yes - Past Social History Smoking Status: Never Smoked - CARDIAC Hx Cardiac Disorders: Yes Hx Cardia Arrhythmia: Yes (SB) Hx Circulatory Problems: Yes Hx Hypertension: Yes - PULMONARY Hx Respiratory Disorders: No - NEUROLOGICAL Hx Neurological Disorder: Yes Hx Dementia: Yes - HEENT Hx HEENT Problems: No - RENAL Hx Chronic Kidney Disease: Yes Other/Comment: acute kidney disease - ENDOCRINE/METABOLIC Hx Endocrine Disorders: Yes Hx Diabetes Mellitus Type 2: Yes - HEMATOLOGICAL/ONCOLOGICAL Hx Blood Disorders: No Hx AIDS: No Hx Human Immunodeficiency Virus (HIV): No - INTEGUMENTARY Hx Dermatological Problems: No - MUSCULOSKELETAL/RHEUMATOLOGICAL Hx Musculoskeletal Disorders: No Hx Falls: No - GASTROINTESTINAL Hx Gastrointestinal Disorders: Yes Hx Pancreatitis: (ENLARGED PANCREATIC HEAD) Other/Comment: HYPERBILIRUBINEMIA - GENITOURINARY/GYNECOLOGICAL Hx Genitourinary Disorders: No - PSYCHIATRIC Hx Psychophysiologic Disorder: No Hx Substance Use: No - SURGICAL HISTORY Hx Surgeries: No - ANESTHESIA Hx Anesthesia: Yes (LOCAL) Hx Anesthesia Reactions: No Hx Malignant Hyperthermia: No Meds Allergies/Adverse Reactions: Allergies Allergy/AdvReac Type Severity Reaction Status Date / Time No Known Allergies Allergy Verified 12/25/16 18:05 - Medications Medications: Current Medications Amlodipine Besylate (Norvasc) 10 mg PO DAILY [facility] Last Admin: 12/26/16 09:02 Dose: 10 mg Bisoprolol Fumarate (Zebeta) 5 mg PO DAILY [facility] Last Admin: 12/26/16 09:03 Dose: 5 mg Enoxaparin Sodium (Lovenox) 30 mg SC DAILY [facility] PRN Reason: Protocol Last Admin: 12/26/16 09:02 Dose: 30 mg Hydrochlorothiazide (Microzide) 12.5 mg PO DAILY [facility] Last Admin: 12/26/16 09:03 Dose: 12.5 mg Dextrose/Sodium Chloride (Dextrose 5%/0.45% Ns 1000 Ml) 1,000 mls @ 50 mls/hr IV .Q20H [facility] Stop: 12/26/16 18:59 Last Admin: 12/25/16 19:35 Dose: 50 mls/hr Piperacillin Sod/Tazobactam (Sod 2.25 gm/ Sodium Chloride) 100 mls @ 100 mls/ hr IVPB Q12@0500,1700 [facility] Last Admin: 12/26/16 04:23 Dose: 100 mls/hr Physical Exam - Cardiovascular Exam Cardiovascular Exam: REGULAR RHYTHM, +S1, +S2 - GI/Abdominal Exam GI & Abdominal Exam: Normal Bowel Sounds, Soft - Extremities Exam Extremities exam: Positive for: normal inspection - Skin Additional comments: JAUNDICED - Additional Findings Additional findings: RECENT EKG WITH NSR RECENT ECHO WITH LVEF OF ~ 20% Results - Vital Signs Recent Vital Signs: Last Vital Signs Temp 97.5 F L 12/26/16 07:57 Pulse 62 12/26/16 09:02 Resp 20 12/26/16 07:57 BP 112/52 L 12/26/16 09:02 Pulse Ox 99 12/26/16 07:57 - Labs Labs: Laboratory Results - last 24 hr 12/26/16 12/26/16 05:58 10:51 POC Glucose (mg/dL) 130 H 151 H Assessment & Plan - Assessment and Plan (Free Text) Assessment: PROBABLE PANCREATIC CA WITH RECENT BX AND STENT INSERTION CAD HISTORY HYPERTENSION Plan: CONTINUE IV FLUIDS, IV ANTIBIOTICS, BISOPROLOL, AMLODIPINE AND LOVENOX AWAITING PANCREATIC BX REPORTS
[2016-12-26] MEDS: Dextrose 5%/0.45% NS 1,000 ML IV SCH (21:08)
--- NOTE | 2016-12-27 02:31 | HP ---
HISTORY OF PRESENT ILLNESS: This is an 86-year-old female with history of *multiple medical problems* including coronary artery disease, hypertension was admitted to acute care for obstructive jaundice with pancreatic head tumor. Patient underwent endoscopic ultrasound and stent placement and she was transferred back to [facility] where she was changed to [facility] to be continued in physical therapy for deconditioning. Patient had biopsy done by endoscopic ultrasound and the results are pending. Patient feels generalized weakness and appetite is fair. PAST MEDICAL HISTORY: Hypertension, coronary artery disease, hypercholesterolemia, SOCIAL HISTORY: No history of smoking, ETOH, or substance abuse. FAMILY HISTORY: Noncontributory. PHYSICAL EXAMINATION GENERAL: Patient is in bed, comfortable with no cardiopulmonary distress. VITAL SIGNS: Blood pressure 112/52, temperature 97.7, respiratory rate 20 and pulse 62. HEENT: Pupils are equal and reactive to light. Normal-appearing mucosa of the conjunctivae, oropharynx, and nasal membrane mucosa. NECK: Supple. No JVD. No carotid bruit. No lymph node, no thyromegaly. CHEST AND LUNGS: Bilateral symmetrical expansion. Good air exchange. No rales or rhonchi. CARDIOVASCULAR: PMI not localized. S1 and S2. No additional sounds. ABDOMEN: Normoactive bowel sounds. No tenderness. No organomegaly. No masses. EXTREMITIES: No cyanosis, no clubbing, no edema. MANAGER OF HEALTH: Alert, awake, oriented x2. No neurological deficit could be appreciated. ASSESSMENT: 1. Obstructive jaundice with pancreatic head mass, rule out pancreatic cancer. 2. Hypertension. 3. Generalized weakness/deconditioning. PLAN: Discuss the patient's condition with gastroenterology, continue current medications and followup on cardiology recommendations regarding the low ejection fraction. Milan Mcdonnell MD
[2016-12-27] MEDS: Enoxaparin 30 mg Syringe SC SCH (08:49)
[2016-12-28] MEDS: Enoxaparin 30 mg Syringe SC SCH (09:00)
--- NOTE | 2016-12-28 13:01 | CP.PCM.PN ---
Subjective - Date & Time of Evaluation Date of Evaluation: 12/28/16 Time of Evaluation: 11:00 - Subjective Subjective: NO COMPLAINTS FEELS BETTER Objective - Vital Signs/Intake and Output Vital Signs (last 24 hours): Temp Pulse Resp BP Pulse Ox 97.8 F 59 L 20 144/59 L 98 12/28/16 08:11 12/28/16 09:01 12/28/16 08:11 12/28/16 09:01 12/28/16 08:11 - Medications Medications: Current Medications Amlodipine Besylate (Norvasc) 10 mg PO DAILY [facility] Last Admin: 12/28/16 09:01 Dose: 10 mg Bisoprolol Fumarate (Zebeta) 5 mg PO DAILY [facility] Last Admin: 12/28/16 09:01 Dose: 5 mg Enoxaparin Sodium (Lovenox) 30 mg SC DAILY [facility] PRN Reason: Protocol Last Admin: 12/28/16 09:00 Dose: 30 mg Piperacillin Sod/Tazobactam (Sod 2.25 gm/ Sodium Chloride) 100 mls @ 100 mls/ hr IVPB Q12@0500,1700 [facility] Last Admin: 12/28/16 06:16 Dose: 100 mls/hr - Respiratory Exam Respiratory Exam: Clear to Ausculation Bilateral - Cardiovascular Exam Cardiovascular Exam: REGULAR RHYTHM, +S1, +S2 - Extremities Exam Extremities Exam: Normal Inspection Assessment and Plan - Assessment and Plan (Free Text) Assessment: PANCREATIC TUMOR WITH EUS, PANCREATIC BX AND STENT INSERTION CAD HYPERTENSION Plan: CONTINUE LOVENOX, AMLODIPINE, BISOPROLOL, ANTIBIOTICS
[2016-12-29] MEDS: Enoxaparin 30 mg Syringe SC SCH (09:02)
--- NOTE | 2016-12-29 10:23 | CP.PCM.PN ---
Subjective - Date & Time of Evaluation Date of Evaluation: 12/29/16 Time of Evaluation: 09:30 - Subjective Subjective: NO CHEST PAIN OR SOB Objective - Vital Signs/Intake and Output Vital Signs (last 24 hours): Temp Pulse Resp BP Pulse Ox 97.8 F 60 20 120/58 L 100 12/29/16 08:02 12/29/16 09:02 12/29/16 08:02 12/29/16 09:02 12/29/16 08:02 - Medications Medications: Current Medications Amlodipine Besylate (Norvasc) 10 mg PO DAILY [facility] Last Admin: 12/29/16 09:02 Dose: 10 mg Bisoprolol Fumarate (Zebeta) 5 mg PO DAILY [facility] Last Admin: 12/29/16 09:03 Dose: 5 mg Piperacillin Sod/Tazobactam (Sod 2.25 gm/ Sodium Chloride) 100 mls @ 100 mls/ hr IVPB Q12@0500,1700 [facility] Last Admin: 12/29/16 04:44 Dose: 100 mls/hr - Respiratory Exam Respiratory Exam: Clear to Ausculation Bilateral - Cardiovascular Exam Cardiovascular Exam: REGULAR RHYTHM, +S1, +S2 - Extremities Exam Extremities Exam: Normal Inspection Assessment and Plan - Assessment and Plan (Free Text) Assessment: PANCREATIC TUMOR CAD HYPERTENSION Plan: CONTINUE BISOPROLOL, AMLODIPNE AND ANTIBIOTICS
--- NOTE | 2016-12-30 07:48 | CP.PCM.PN ---
Subjective - Date & Time of Evaluation Date of Evaluation: 12/30/16 Time of Evaluation: 07:43 - Subjective Subjective: Had a long talk with the pt's daughter., According to her the mother never wanted to go to a [facility], but wants to go home. she does not take any medicines and not only will she not take chemotherapy but I dont think she can tolerate it as well,. I suggested home hospice to the patient. She will be evaluated by the senior director creative services today. Objective - Vital Signs/Intake and Output Vital Signs (last 24 hours): Temp Pulse Resp BP Pulse Ox 97.1 F L 47 L 20 168/72 H 96 12/29/16 21:24 12/29/16 21:24 12/29/16 21:24 12/29/16 21:24 12/29/16 21:24 - Medications Medications: Current Medications Amlodipine Besylate (Norvasc) 10 mg PO DAILY [facility] Last Admin: 12/29/16 09:02 Dose: 10 mg Bisoprolol Fumarate (Zebeta) 5 mg PO DAILY [facility] Last Admin: 12/29/16 09:03 Dose: 5 mg Piperacillin Sod/Tazobactam (Sod 2.25 gm/ Sodium Chloride) 100 mls @ 100 mls/ hr IVPB Q12@0500,1700 [facility] Last Admin: 12/30/16 04:01 Dose: 100 mls/hr
[2016-12-30 07:57] VITALS: O2SAT 100
--- NOTE | 2016-12-30 09:31 | CP.PCM.PN ---
Subjective - Date & Time of Evaluation Date of Evaluation: 12/30/16 Time of Evaluation: 09:15 - Subjective Subjective: NO COMPLAINTS Objective - Vital Signs/Intake and Output Vital Signs (last 24 hours): Temp Pulse Resp BP Pulse Ox 97.1 F L 62 20 143/63 100 12/30/16 07:56 12/30/16 08:41 12/30/16 07:56 12/30/16 08:41 12/30/16 07:56 - Medications Medications: Current Medications Amlodipine Besylate (Norvasc) 10 mg PO DAILY [facility] Last Admin: 12/30/16 08:41 Dose: 10 mg Bisoprolol Fumarate (Zebeta) 5 mg PO DAILY [facility] Last Admin: 12/30/16 08:41 Dose: 5 mg Piperacillin Sod/Tazobactam (Sod 2.25 gm/ Sodium Chloride) 100 mls @ 100 mls/ hr IVPB Q12@0500,1700 [facility] Last Admin: 12/30/16 04:01 Dose: 100 mls/hr - Respiratory Exam Respiratory Exam: Clear to Ausculation Bilateral - Cardiovascular Exam Cardiovascular Exam: REGULAR RHYTHM, +S1, +S2 - Extremities Exam Extremities Exam: Normal Inspection - Additional Findings Additional findings: ONCOLOGY NOTE REVIEWED AND DAUGHTER STATES HER MOTHER PROBABLY DOESN'T WANT CHEMOTHERAPY AND WILL PROBABLY OPT FOR HOME HOSPICE Assessment and Plan - Assessment and Plan (Free Text) Assessment: PANCREATIC TUMOR WITH RECENT EUS AND STENT INSERTION CAD HYPERTENSION Plan: CONTINUE BISOPROLOL, AMLODIPINE AND ANTIBIOTICS HOSPICE TO SEE
--- NOTE | 2016-12-30 11:43 | PN ---
DATE: 12/29/2016 SUBJECTIVE: She is not in any cardiopulmonary distress, was alert, awake, and oriented. PHYSICAL EXAMINATION: VITAL SIGNS: Blood pressure is *------*. HEENT: Pupils equal, reactive to light. Normal-appearing mucosa, conjunctivae, oropharyngeal,nasal membrane mucosa. NECK: Supple. No JVD. No carotid bruit. No lymph nodes. No thyromegaly. CHEST AND LUNGS: Bilateral symmetrical expansion. Good air exchange. No rales. No rhonchi. CARDIOVASCULAR: PMI not localized. S1 and S2. No additional sounds.. ABDOMEN: Normoactive bowel sounds. No tenderness. No organomegaly. No masses. EXTREMITIES: No cyanosis, no clubbing, no edema. TUTORING CLINICIAN: Alert, awake, and oriented x1. No neurological deficits appreciated. 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 PLAN: Discussed the patient's condition with Dr. Chaves and daughter, who will decide regarding further management. For now, continue *------* as well as medications. Milan Mcdonnell MD
--- NOTE | 2016-12-31 05:24 | PN ---
DATE: 12/30/2016 SUBJECTIVE: She is not in any cardiopulmonary distress. PHYSICAL EXAMINATION VITAL SIGNS: Blood pressure 133/63, temperature 96.6, respiratory rate 20, and pulse 66. HEENT: Slightly pale mucosa of the conjunctivae. NECK: Supple. No JVD. No carotid bruit. No lymph nodes. No thyromegaly. CHEST AND LUNGS: Bilateral symmetrical expansion. Good air exchange. No rales. No rhonchi. CARDIOPULMONARY: PMI not localized. S1 and S2. No additional sounds. ABDOMEN: Normoactive bowel sounds. No tenderness. No organomegaly. No masses. EXTREMITIES: No cyanosis. No clubbing. No edema. CENTRAL NERVOUS SYSTEM: Alert, awake and oriented x 2. No neurological deficit could be appreciated. ASSESSMENT: 1. Invasive metastatic adenocarcinoma of the pancreas, status post stent placement for obstructive jaundice. 2. Hypertension. PLAN: After discussion with the treating oncologist and the family the decision was made to have phosphate evaluation which was ordered. Milan Mcdonnell MD
[2016-12-31 08:07] VITALS: BP 163/64; PULSE 59
--- NOTE | 2016-12-31 09:34 | CP.PCM.PN ---
Subjective - Date & Time of Evaluation Date of Evaluation: 12/31/16 Time of Evaluation: 09:00 - Subjective Subjective: NO COMPLAINTS Objective - Vital Signs/Intake and Output Vital Signs (last 24 hours): Temp Pulse Resp BP Pulse Ox 97.0 F L 59 L 20 163/64 H 100 12/31/16 08:03 12/31/16 09:00 12/31/16 08:03 12/31/16 09:00 12/31/16 08:03 - Medications Medications: Current Medications Amlodipine Besylate (Norvasc) 10 mg PO DAILY [facility] Last Admin: 12/31/16 09:00 Dose: 10 mg Bisoprolol Fumarate (Zebeta) 5 mg PO DAILY [facility] Last Admin: 12/31/16 09:00 Dose: 5 mg - Respiratory Exam Respiratory Exam: Clear to Ausculation Bilateral - Cardiovascular Exam Cardiovascular Exam: REGULAR RHYTHM, +S1, +S2 - Extremities Exam Extremities Exam: Normal Inspection Assessment and Plan - Assessment and Plan (Free Text) Assessment: PANCREATIC TUMOR CAD HYPERTENSION Plan: PATIENT WILL BE DISCHARGED TODAY TO HOME HOSPICE
[2016-12-31 13:54] VITALS: TEMP 97
--- NOTE | 2017-01-01 20:07 | DS ---
REASON FOR ADMISSION: This is an 86-year-old female, was admitted to transitional care unit or deconditioning and physical therapy. COURSE OF HOSPITALIZATION: The patient was admitted to transitional care unit and she was started on physical therapy. Nephrology report of endoscopic pancreatic lesion biopsy revealed invasive adenocarcinoma. The patient had oncology consultation done by Dr. Chaves. After discussion with the family a decision was made to refer the patient to hospice care and the patient was discharged to in home hospice and palliative care. FINAL DIAGNOSES: Invasive adenocarcinoma of the pancreas. Obstructive jaundice. Hypertension. Hospice care. [facility] MD Sathya
== END 2016-12-31 13:55 | disposition hospice, home (50) | DRG 435 ==
LOC: H.TCU 18:05
PROVIDERS: ADMIT Internal Medicine; ATTEND Internal Medicine
PROC: F07Z9FZ Gait Training/Functional Ambulation Treatment using Assistive, Adaptive, Supportive or Protective Equipment (ICD-10-PCS; principal; 2016-12-25)
PROC: F08Z4FZ Home Management Treatment using Assistive, Adaptive, Supportive or Protective Equipment (ICD-10-PCS; 2016-12-25)
PROC: F07M6FZ Therapeutic Exercise Treatment of Musculoskeletal System - Whole Body using Assistive, Adaptive, Supportive or Protective Equipment (ICD-10-PCS; 2016-12-26)
DX: C25.0 Malignant neoplasm of head of pancreas (principal); K83.1 Obstruction of bile duct; E11.22 Type 2 diabetes mellitus with diabetic chronic kidney disease; I12.9 Hypertensive chronic kidney disease with stage 1 through stage 4 chronic kidney disease, or unspecified chronic kidney disease; N18.9 Chronic kidney disease, unspecified; I25.10 Atherosclerotic heart disease of native coronary artery without angina pectoris; E78.00 Pure hypercholesterolemia, unspecified; R53.1 Weakness; Z91.19 Patient's noncompliance with other medical treatment and regimen